=== PATIENT | male | born 1980 | race Caucasian/White ===

== ENCOUNTER 2017-07-01 08:27 | Emergency (ER) | payer SELFPAY ==
[2017-07-01] MEDS ORDERED: BUTALB/ACETAMINOPHEN/CAFFEINE 1 TAB EACH PO ONE (09:12)
--- NOTE | 2017-07-01 09:13 | ER Document Report ---
ED Medical Screen (RME) - General Chief Complaint: Blood Pressure Problem Stated Complaint: BLOOD PRESSURE CONCERN Time Seen by Provider: 07/01/17 09:11 Notes: Patient presents with bilateral frontal squeezing headache. He is also tearful and says that he is concerned about his health. States he does not go to the doctor regularly. States that he is concerned about his blood pressure being elevated. Denies any knowledge of chronic medical conditions or previous surgeries. Patient denies SI/HI. TRAVEL OUTSIDE OF THE [place] IN LAST 30 DAYS: No - Related Data Allergies/Adverse Reactions: No Known Allergies Allergy (Verified 07/01/17 08:29) Past Medical History - Social History Chew tobacco use (# tins/day): No Frequency of alcohol use: Occasional Drug Abuse: None Renal/ Medical History: Denies: Hx Peritoneal Dialysis - Immunizations Hx Diphtheria, Pertussis, Tetanus Vaccination: Yes - 2013
--- NOTE | 2017-07-01 09:22 | ER Document Report ---
ED Blood Pressure Problem - General Chief Complaint: Blood Pressure Problem Stated Complaint: BLOOD PRESSURE CONCERN Time Seen by Provider: 07/01/17 09:11 Notes: The patient is a 37-year-old male, no past medical history because he has not seen a doctor since he was in high school, presents with his usual dull frontal headache that gradually started yesterday. He has had this multiple times in the past and usually said that Goodies has helped him in the past. He took Tylenol about 3 hours ago and he feels like his headache is already improving. He received 2 Fioricet in triage so that his headache has resolved. Patient also worried about his blood pressure being elevated. Denies blurry vision, nausea, vomiting, weakness, numbness, tingling, ataxia, chest pain, shortness of breath, back pain, fevers or neck stiffness. TRAVEL OUTSIDE OF THE [place] IN LAST 30 DAYS: No - Related Data Allergies/Adverse Reactions: No Known Allergies Allergy (Verified 07/01/17 08:29) Past Medical History - General Information source: Patient - Social History Smoking Status: Current Some Day Smoker Chew tobacco use (# tins/day): No Frequency of alcohol use: Occasional Drug Abuse: None Family History: Reviewed & Not Pertinent Patient has suicidal ideation: No Patient has homicidal ideation: No Renal/ Medical History: Denies: Hx Peritoneal Dialysis - Immunizations Hx Diphtheria, Pertussis, Tetanus Vaccination: Yes - 2013 Review of Systems - Review of Systems Notes: REVIEW OF SYSTEMS: CONSTITUTIONAL: -fevers, -chills EENT: -eye pain, -difficulty swallowing, -nasal congestion CARDIOVASCULAR:-chest pain, -syncope. RESPIRATORY: -cough, -SOB GASTROINTESTINAL: -abdominal pain, - nausea, -vomiting, -diarrhea GENITOURINARY: -dysuria, -hematuria MUSCULOSKELETAL: -back pain, -neck pain SKIN: -rash or skin lesions. HEMATOLOGIC: -easy bruising or bleeding. LYMPHATIC: -swollen, enlarged glands. NEUROLOGICAL: -altered mental status or loss of consciousness, +headache, - neurologic symptoms PSYCHIATRIC: -anxiety, -depression. ALL OTHER SYSTEMS REVIEWED AND NEGATIVE. Physical Exam - Notes Notes: PHYSICAL EXAMINATION: GENERAL: Well-appearing, well-nourished and in no acute distress. HEAD: Atraumatic, normocephalic. EYES: Pupils equal round and reactive to light, extraocular movements intact, sclera anicteric, conjunctiva are normal. ENT: nares patent, oropharynx clear without exudates. Moist mucous membranes. NECK: Normal range of motion, supple without lymphadenopathy LUNGS: Breath sounds clear to auscultation bilaterally and equal. No wheezes rales or rhonchi. HEART: Regular rate and rhythm without murmurs ABDOMEN: Soft, nontender, normoactive bowel sounds. No guarding, no rebound. No masses appreciated. EXTREMITIES: Normal range of motion, no pitting or edema. No cyanosis. NEUROLOGICAL: Cranial nerves grossly intact. Normal speech, normal gait. Normal sensory and motor exams. PSYCH: Normal mood, normal affect. SKIN: Warm, Dry, normal turgor, no rashes or lesions noted. Course - Re-evaluation Re-evalutation: Patient's headache is similar to prior headaches and seems benign in nature. Symptoms are not consistent with SAH, ICH or meningitis at this time. Instructed him to continue Tylenol and anti-inflammatories with large amounts of water and to stop smoking in order to help his headaches. Patient does not have a primary care physician. He has had multiple elevated blood pressure readings, so we will begin a low-dose Norvasc and instructed him to follow-up with the primary care physician for possible adjustments of his medications. He has otherwise asymptomatic hypertension and does not require blood work. Given strict return precautions and he understands. Discharge - Discharge Clinical Impression: Elevated blood pressure reading Headache Qualifiers: Headache type: unspecified Headache chronicity pattern: chronic headache Intractability: not intractable Qualified Code(s): R51 - Headache Condition: Stable Disposition: HOME, SELF-CARE Additional Instructions: HIGH BLOOD PRESSURE REQUIRING TREATMENT: Your blood pressure is high. This is called "hypertension." Today's reading was 157/114 (normal is less than 140/90). Your history and exam suggest that this is not a temporary problem. You need treatment of your blood pressure. If left untreated, high blood pressure greatly increases your risk of heart attack and stroke. Please don't ignore this problem. If you have blood pressure medicine but aren't using it regularly, start taking it again. Some simple things you can do to help are: Get some aerobic exercise for at least 20 minutes on a daily basis. (See your doctor before beginning any new exercise program.) Eat a low-fat diet. Lose excess weight. Avoid salty foods and avoid adding salt to any of the foods you eat. Avoid diet pills, decongestants, "energizing" herbs, and other medicines that elevate blood pressure. There are many different medicines that treat blood pressure. If your medication causes unpleasant side effects, call your doctor. There are others you can try. Treating hypertension is a life-long investment in your health. CALCIUM CHANNEL BLOCKERS: A medication of the calcium channel martha type has been prescribed for you. Examples of this type of medicine are Calan, Isoptin, Procardia, and Cardizem. These medicines have a variety of uses, including prevention of angina attacks, treatment of blood pressure, regulation of certain heart rhythm problems, and prevention of migraine headaches. Calcium channel blockers work by interfering with the flow of calcium in cell membranes. This results in dilation of blood vessels, and slowing of electrical conduction in the heart. A slight dizziness (due to a fall in blood pressure) may occur with the first dose, and sometimes even with later doses. This may make you prone to dizziness if you stand up suddenly. Call the doctor if lightheadedness is severe, or if you develop palpitations, shortness of breath, or any other new or alarming symptoms. FOLLOW-UP CARE: If you have been referred to a physician for follow-up care, call the physician s office for an appointment as you were instructed or within the next two days. If you experience worsening or a significant change in your symptoms, notify the physician immediately or return to the Emergency Department at any time for re-evaluation. HEADACHE: The physician does not feel that the headache you are experiencing has a serious underlying cause. Most headaches are due to emotional stress, with resultant muscle tension (tension headache). Occasionally, headaches are secondary to changes in the blood vessels of the scalp (vascular headache and migraine headache). Sometimes, a headache is the first symptom of another developing illness, such as a viral infection. You have no evidence of stroke, bleeding, meningitis, or other serious cause of your headache. The treatment of headaches varies with the severity and cause of the pain. Not all headaches need pain shots. In fact, there is evidence that using narcotics for headaches may make them worse in the long run. The physician will determine the therapy that's in your best interest. If you develop a fever, if the headache is different from any you've previously experienced, or if the headache progressively worsens, then call your physician at once or go to the emergency room. FOLLOW-UP CARE: If you have been referred to a physician for follow-up care, call the physician s office for an appointment as you were instructed or within the next two days. If you experience worsening or a significant change in your symptoms, notify the physician immediately or return to the Emergency Department at any time for re-evaluation. Prescriptions: Amlodipine Besylate [Norvasc 5 mg Tablet] 5 mg PO DAILY #30 tablet Forms: Elevated Blood Pressure Referrals: ANTHONY CALI MD [ACTIVE STAFF] - Follow up as needed
[2017-07-01] MEDS ORDERED: AMLODIPINE BESYLATE 5 MG TABLET PO ONE (09:28)
[2017-07-01 10:04] VITALS: BP 156/94
== END 2017-07-01 10:04 | disposition home or self-care (01) ==
LOC: ER 08:27
DX: R51 Headache (principal); R03.0 Elevated blood-pressure reading, without diagnosis of hypertension; F17.200 Nicotine dependence, unspecified, uncomplicated
CPT/HCPCS: 99283; J3490

== ENCOUNTER → 2018-02-10 | Outpatient (CLI) | payer OTHER ==
[2018-02-10 12:10] LABS: ALANINE AMINOTRANSFERASE 72 U/L (21-72); ALBUMIN 4.8 g/dL (3.5-5.0); ALKALINE PHOSPHATASE 66 U/L (38-126); ASPARTATE AMINO TRANSFERASE 47 U/L (17-59); BILIRUBIN,DIRECT 0.4 mg/dL (0.0-0.4); BILIRUBIN,TOTAL 0.6 mg/dL (0.2-1.3); TOTAL PROTEIN 7.9 g/dL (6.3-8.2)
[2018-02-10 12:18] LABS: ALANINE AMINOTRANSFERASE 70 U/L (21-72); ALBUMIN 4.8 g/dL (3.5-5.0); ALKALINE PHOSPHATASE 61 U/L (38-126); ANION GAP 14 (5-19); ASPARTATE AMINO TRANSFERASE 51 U/L (17-59); BILIRUBIN,DIRECT 0.5 mg/dL (0.0-0.4); BILIRUBIN,TOTAL 0.7 mg/dL (0.2-1.3); BLOOD UREA NITROGEN 12 mg/dL (7-20); CALCIUM 9.8 mg/dL (8.4-10.2); CARBON DIOXIDE 24 mmol/L (22-30); CHLORIDE 103 mmol/L (98-107); CHOLESTEROL 243.63 mg/dL (0-200); GLUCOSE 83 mg/dL (75-110); POTASSIUM 5.2 mmol/L (3.6-5.0); SODIUM 140.7 mmol/L (137-145); TOTAL PROTEIN 8.2 g/dL (6.3-8.2); TRIGLYCERIDES 167 mg/dL (<150)
[2018-02-10 12:33] LABS: DIRECT LDL 173 mg/dL (<100)
[2018-02-10 12:34] LABS: VLDL CHOLESTEROL 33.4 mg/dL (10-31)
== END ==
LOC: CCC 10:42
DX: I10 Essential (primary) hypertension (principal); K21.9 Gastro-esophageal reflux disease without esophagitis
CPT/HCPCS: 36415; 80053; 80061; 80076; 83036; 84443

== ENCOUNTER → 2018-03-05 | Outpatient (CLI) | payer OTHER ==
--- NOTE | 2018-03-06 08:55 | RADIOLOGY REPORT (SQ) ---
EXAM DESCRIPTION: U/S NON-OB PELVIS LTD W/O DOP COMPLETED DATE/TIME: 03/05/2018 6:23 pm REASON FOR STUDY: R10.30 LOWER ABDOMINAL PAIN, UNSPECIFIED R10.30 LOWER ABDOMINAL PAIN, UNSPECIFIED COMPARISON: None. TECHNIQUE: Dynamic and static grayscale images acquired of the localized site of clinical concern an d recorded on PACS. Additional selected color Doppler and spectral images recorded. SITE OF CONCERN: Left inguinal region. LIMITATIONS: None. FINDINGS: No soft tissue abnormality. No solid or cystic mass. No sonographic evidence of inguinal hernia. IMPRESSION: NO SONOGRAPHIC ABNORMALITY IN THE LEFT INGUINAL REGION. TECHNICAL DOCUMENTATION: JOB ID: [id number] [employer]- All Rights Reserved Reading location - IP/workstation name: [facility]PL[facility] BY [email or web address]
== END ==
LOC: RAD 18:08
DX: R10.30 Lower abdominal pain, unspecified (principal)
CPT/HCPCS: 76857

== ENCOUNTER 2018-06-17 11:42 | Emergency (ER) | payer OTHER ==
[2018-06-17] MEDS ORDERED: ASPIRIN 81 MG TABLET, CHEWABLE PO ONE (12:48)
[2018-06-17] MEDS ORDERED: CLONIDINE HCL 0.1 MG TABLET PO ONE (12:49)
[2018-06-17] MEDS ORDERED: FAMOTIDINE INJ/PF 20 MG/2 ML SDV IV ONE (12:50)
[2018-06-17] MEDS ORDERED: METOCLOPRAMIDE HCL ORAL SOLN 10 MG/10 ML UDCUP PO ONE (12:50)
[2018-06-17] MEDS ORDERED: MAG HYDROX/AL HYDROX/SIMETH SUSP 30 ML UDCUP PO ONE (12:50)
[2018-06-17] MEDS ORDERED: LIDOCAINE 2% VISCOUS SOLN 20 ML UDCUP PO ONE (12:50)
--- NOTE | 2018-06-17 12:52 | ER Document Report ---
ED Medical Screen (RME) - General Chief Complaint: High Blood Pressure Stated Complaint: BLOOD PRESSURE ISSUES, ANXIETY Time Seen by Provider: 06/17/18 12:48 Mode of Arrival: Ambulatory Information source: Patient Notes: 38-year-old male presents emergency department for anxiety, hypertension, chest pain. Patient states that he was at work when he began having L arm pain and chest pressure. He became very anxious. Was worried he was having an anxiety attack. Now having a gas/indigestion sensation in the epigastric area. No radiation of the pain. No alleviating or exacerbating factors. Patient has a history of hypertension, hyperlipidemia, family history of coronary artery disease. Patient states that his dad had an OH at age 40. Patient denies any cocaine, marijuana, heroin, drug abuse. I have greeted and performed a rapid initial assessment of this patient. A comprehensive ED assessment and evaluation of the patient, analysis of test results and completion of the medical decision making process will be conducted by additional ED providers. PHYSICAL EXAMINATION: GENERAL: Well-appearing, well-nourished and in no acute distress. HEAD: Atraumatic, normocephalic. EYES: Pupils equal round extraocular movements intact, conjunctiva are normal. ENT: Nares patent NECK: Normal range of motion LUNGS: No respiratory distress Musculoskeletal: Normal range of motion SKIN: Warm, Dry, normal turgor, no rashes or lesions noted. TRAVEL OUTSIDE OF THE [place] IN LAST 30 DAYS: No - Related Data Allergies/Adverse Reactions: No Known Allergies Allergy (Verified 06/17/18 11:45) Past Medical History - Social History Chew tobacco use (# tins/day): No Frequency of alcohol use: Occasional Drug Abuse: None - Past Medical History Cardiac Medical History: Reports: Hx Hypercholesterolemia, Hx Hypertension Renal/ Medical History: Denies: Hx Peritoneal Dialysis - Immunizations Hx Diphtheria, Pertussis, Tetanus Vaccination: Yes - 2013 Physical Exam - Vital signs Vitals: Temp Pulse Resp BP Pulse Ox 98.5 F 80 18 151/93 H 97 06/17/18 11:59 06/17/18 11:59 06/17/18 11:59 06/17/18 11:59 06/17/18 11:59 Course - Vital Signs Vital signs: Temp Pulse Resp BP Pulse Ox 98.5 F 80 18 151/93 H 97 06/17/18 11:59 06/17/18 11:59 06/17/18 11:59 06/17/18 11:59 06/17/18 11:59 Doctor's Discharge - Discharge Referrals: [facility] [Primary Care Provider] - Follow up as needed
--- NOTE | 2018-06-17 13:10 | EKG REPORT ---
SEVERITY:- NORMAL ECG - SINUS RHYTHM : Confirmed by: Cyril Childs MD 17-Jun-2018 13:09:35
[2018-06-17 14:01] LABS: ABSOLUTE BASOPHILS # (AUTO) 0.1 10^3/uL (0.0-0.2); ABSOLUTE EOSINOPHILS # (AUTO) 0.3 10^3/uL (0.0-0.6); ABSOLUTE LYMPHOCYTES (AUTO) 2.5 10^3/uL (0.5-4.7); ABSOLUTE MONOCYTES (AUTO) 0.5 10^3/uL (0.1-1.4); ABSOLUTE NEUT (AUTO) 4.7 10^3/uL (1.7-8.2); BASOPHILS % (AUTO) 0.8 % (0-2); EOSINOPHILS % (AUTO) 3.4 % (0-6); HEMOGLOBIN 16.4 g/dL (13.5-17.0); MEAN CORPUSCULAR HEMOGLOBIN 31.3 pg (27.0-33.4); MEAN CORPUSCULAR HGB CONC 35.6 g/dL (32.0-36.0); MEAN CORPUSCULAR VOLUME 88 fl (80-97); MONOCYTES % (AUTO) 5.7 % (3-13); PLATELET COUNT 298 10^3/uL (150-450); RED BLOOD COUNT 5.24 10^6/uL (4.35-5.55); RED CELL DISTRIBUTION WIDTH 12.8 % (11.5-14.0); SEGMENTED NEUTROPHILS % (AUTO) 59.1 % (42-78); TOTAL CELLS COUNTED % (AUTO) 100 %
[2018-06-17 14:14] LABS: URINE AMPHETAMINES SCREEN NEGATIVE; URINE BARBITURATES SCREEN NEGATIVE; URINE BENZODIAZEPINES SCREEN NEGATIVE; URINE COCAINE SCREEN NEGATIVE; URINE MARIJUANA (THC) SCREEN UNCONFIRMED POSITIVE; URINE METHADONE SCREEN NEGATIVE; URINE PHENCYCLIDINE SCREEN NEGATIVE
[2018-06-17 14:18] LABS: ALANINE AMINOTRANSFERASE 50 U/L (21-72); ALBUMIN 4.7 g/dL (3.5-5.0); ALKALINE PHOSPHATASE 68 U/L (38-126); ANION GAP 14 (5-19); ASPARTATE AMINO TRANSFERASE 35 U/L (17-59); BILIRUBIN,DIRECT 0.2 mg/dL (0.0-0.4); BILIRUBIN,TOTAL 0.6 mg/dL (0.2-1.3); BLOOD UREA NITROGEN 10 mg/dL (7-20); CALCIUM 9.9 mg/dL (8.4-10.2); CARBON DIOXIDE 27 mmol/L (22-30); CHLORIDE 102 mmol/L (98-107); CREATINE KINASE 144 U/L (55-170); GLUCOSE 119 mg/dL (75-110); POTASSIUM 4.2 mmol/L (3.6-5.0); SODIUM 142.6 mmol/L (137-145); TOTAL PROTEIN 7.7 g/dL (6.3-8.2)
[2018-06-17 14:28] LABS: CREATINE KINASE MB 1.06 ng/mL (<4.55)
[2018-06-17 14:29] LABS: TROPONIN I < 0.012 ng/mL
[2018-06-17 14:34] LABS: FREE T4 (FREE THYROXINE) 1.07 ng/dL (0.78-2.19)
[2018-06-17 14:48] LABS: THYROID STIMULATING HORMONE 0.91 uIU/mL (0.47-4.68)
--- NOTE | 2018-06-17 15:11 | RADIOLOGY REPORT (SQ) ---
EXAM DESCRIPTION: CHEST SINGLE VIEW COMPLETED DATE/TIME: 06/17/2018 2:48 pm REASON FOR STUDY: chest pain COMPARISON: None. EXAM PARAMETERS: NUMBER OF VIEWS: One view. TECHNIQUE: Single frontal radiographic view of the chest acquired. RADIATION DOSE: NA LIMITATIONS: None. FINDINGS: LUNGS AND PLEURA: No opacities, masses or pneumothorax. No pleural effusion. MEDIASTINUM AND HILAR STRUCTURES: No masses. Contour normal. HEART AND VASCULAR STRUCTURES: Heart normal in size. Normal vasculature. BONES: No acute findings. HARDWARE: None in the chest. OTHER: No other significant finding. IMPRESSION: NO ACUTE RADIOGRAPHIC FINDING IN THE CHEST. TECHNICAL DOCUMENTATION: JOB ID: [id number] [employer]- All Rights Reserved Reading location - IP/workstation name: [email or web address]
[2018-06-17] MEDS ORDERED: HYDROXYZINE PAMOATE 25 MG CAPSULE PO ONE (15:27)
[2018-06-17] MEDS ORDERED: NORMAL SALINE 1000 ML 1,000 ML IV ONE (15:37)
--- NOTE | 2018-06-17 15:38 | ER Document Report ---
ED General - General Chief Complaint: High Blood Pressure Stated Complaint: BLOOD PRESSURE ISSUES, ANXIETY Time Seen by Provider: 06/17/18 12:48 Mode of Arrival: Ambulatory TRAVEL OUTSIDE OF THE [place] IN LAST 30 DAYS: No - HPI Patient complains to provider of: Chest pain anxiety elevated blood pressure Notes: Patient coming in for the above-stated issues. Patient was evaluated in the triage area notes provided to look below 38-year-old male presents emergency department for anxiety, hypertension, chest pain. Patient states that he was at work when he began having L arm pain and chest pressure. He became very anxious. Was worried he was having an anxiety attack. Now having a gas/indigestion sensation in the epigastric area. No radiation of the pain. No alleviating or exacerbating factors. Patient has a history of hypertension, hyperlipidemia, family history of coronary artery disease. Patient states that his dad had an MN at age 40. Patient denies any cocaine, marijuana, heroin, drug abuse. Patient agrees with above statements. Patient states that he does believe most of his symptoms are coming from anxiety attacks. Patient states he does have a appointment to follow-up with local psychiatric provider patient states he is on blood pressure medication amlodipine 5 mg and has been compliant with his medication. Patient denies any fever chills nausea vomiting diarrhea denies any recent travel denies any trauma. - Related Data Allergies/Adverse Reactions: No Known Allergies Allergy (Verified 06/17/18 11:45) Past Medical History - General Information source: Patient - Social History Smoking Status: Current Every Day Smoker Chew tobacco use (# tins/day): No Frequency of alcohol use: Occasional Drug Abuse: None Family History: Reviewed & Not Pertinent Patient has suicidal ideation: No Patient has homicidal ideation: No - Past Medical History Cardiac Medical History: Reports: Hx Hypercholesterolemia, Hx Hypertension Renal/ Medical History: Denies: Hx Peritoneal Dialysis - Immunizations Hx Diphtheria, Pertussis, Tetanus Vaccination: Yes - 2013 Review of Systems - Review of Systems Constitutional: No symptoms reported EENT: No symptoms reported Cardiovascular: Chest pain Respiratory: No symptoms reported Gastrointestinal: No symptoms reported Genitourinary: No symptoms reported Male Genitourinary: No symptoms reported Musculoskeletal: No symptoms reported Skin: No symptoms reported Hematologic/Lymphatic: No symptoms reported Neurological/Psychological: Anxiety -: Yes All other systems reviewed and negative Physical Exam - Vital signs Vitals: Temp Pulse Resp BP Pulse Ox 98.5 F 80 18 151/93 H 97 06/17/18 11:59 06/17/18 11:59 06/17/18 11:59 06/17/18 11:59 06/17/18 11:59 Interpretation: Hypertensive - General General appearance: Appears well, Alert - HEENT Head: Normocephalic, Atraumatic Eyes: Normal Pupils: PERRL - Respiratory Respiratory status: No respiratory distress Chest status: Nontender Breath sounds: Normal Chest palpation: Normal - Cardiovascular Rhythm: Regular Heart sounds: Normal auscultation Murmur: No - Abdominal Inspection: Normal Distension: No distension Bowel sounds: Normal Tenderness: Nontender Organomegaly: No organomegaly - Back Back: Normal, Nontender - Extremities General upper extremity: Normal inspection, Nontender, Normal color, Normal ROM , Normal temperature General lower extremity: Normal inspection, Nontender, Normal color, Normal ROM , Normal temperature, Normal weight bearing. No: Josiah's sign - Neurological Neuro grossly intact: Yes Cognition: Normal Orientation: AAOx4 Langford Coma Scale Eye Opening: Spontaneous Langford Coma Scale Verbal: Oriented Langford Coma Scale Motor: Obeys Commands Carol Coma Scale Total: 15 Speech: Normal Motor strength normal: LUE, RUE, LLE, RLE Sensory: Normal - Psychological Associated symptoms: Normal affect, Normal mood - Skin Skin Temperature: Warm Skin Moisture: Dry Skin Color: Normal Course - Re-evaluation Re-evalutation: 06/17/18 22:43 The patient has atypical chest pain as the patient's chest pain is not suggestive of pulmonary embolus, cardiac ischemia, aortic dissection, or other serious etiology. Given the extremely low risk of these diagnoses further testing and evaluation for these possibilities does not appear to be indicated at this time. The patient has been instructed to return if the symptoms worsen or change in any way. Patient was given medication to help out with his possible underlying anxiety. Laboratory studies not show any critical pathology discharged home. - Vital Signs Vital signs: Temp Pulse Resp BP Pulse Ox 98.4 F 77 19 147/89 H 98 06/17/18 16:35 06/17/18 16:35 06/17/18 16:35 06/17/18 16:35 06/17/18 16:35 - Laboratory Result Diagrams: 06/17/18 13:45 06/17/18 13:45 Laboratory results interpreted by me: 06/17/18 13:45 Glucose 119 H Discharge - Discharge Clinical Impression: Anxiety Hypertension Qualifiers: Hypertension type: essential hypertension Qualified Code(s): I10 - Essential ( primary) hypertension Chest pain Qualifiers: Chest pain type: unspecified Qualified Code(s): R07.9 - Chest pain, unspecified Condition: Good Disposition: HOME, SELF-CARE Instructions: Anxiety ([facility]), Chest Wall Pain ([facility]), Chest Pain of Unclear Cause ([facility]), High Blood Pressure, Requiring Treatment ([facility]) Additional Instructions: Your laboratory studies today did not show any critical pathology. No signs of heart ischemia heart attack no signs of infection. Some your symptoms may be due to underlying anxiety also may be due to the elevated blood pressure. Her blood pressure here although slightly elevated and is otherwise normal. We can adjust her blood pressure medication today increasing her amlodipine to 10 mg. I will provide your prescription for this. Also give you a medication called Vistaril to help out with any anxiety that you are having. I highly recommend she follow-up with her primary care physician for further evaluation. Return to the ER for any other concerns. Please make sure drinking plenty of fluids stay well-hydrated. Prescriptions: Ibuprofen [Motrin 600 mg Tablet] 600 mg PO Q8HP PRN #21 tablet PRN Reason: Amlodipine Besylate 10 mg PO DAILY #30 tab Hydroxyzine Pamoate [Vistaril 25 mg Capsule] 25 mg PO DAILY #30 capsule Forms: Return to Work Referrals: [facility] [Primary Care Provider] - Follow up as needed
[2018-06-17 16:38] VITALS: BP 147/89
== END 2018-06-17 16:35 | disposition home or self-care (01) ==
LOC: ER 11:42
DX: E78.00 Pure hypercholesterolemia, unspecified (principal); R07.9 Chest pain, unspecified; F41.9 Anxiety disorder, unspecified; F17.200 Nicotine dependence, unspecified, uncomplicated; R40.2412 Glasgow coma scale score 13-15, at arrival to emergency department
CPT/HCPCS: 93005; 99284; 96374; 36415; 84439; 82553; 82550; 84443; 85025; 80053; 84484; 80307; 71045; 93010; J3490; S0028

== ENCOUNTER 2019-01-09 23:34 | Emergency (ER) | payer BC, OTHER ==
[2019-01-10] MEDS ORDERED: NORMAL SALINE 1000 ML 1,000 ML IV ONE (00:38)
[2019-01-10] MEDS ORDERED: MAG HYDROX/AL HYDROX/SIMETH SUSP 30 ML UDCUP PO ONE (00:38)
[2019-01-10] MEDS ORDERED: METOCLOPRAMIDE HCL ORAL SOLN 10 MG/10 ML UDCUP PO ONE (00:38)
[2019-01-10] MEDS ORDERED: LIDOCAINE 2% VISCOUS SOLN 20 ML UDCUP PO ONE (00:38)
--- NOTE | 2019-01-10 00:41 | ER Document Report ---
ED Medical Screen (RME) - General Chief Complaint: Chest Pain Stated Complaint: CHEST PAIN Time Seen by Provider: 01/10/19 00:38 Primary Care Provider: HERBER ALEXANDRE [Primary Care Provider] - Follow up as needed Notes: Patient is a 38-year-old male history of hypertension on Norvasc presents to the emergency department for generalized chest pressure. Patient states since Saturday he has had multiple episodes of vomiting and diarrhea. He is denying any fevers. States this afternoon he felt a heaviness in the center of his chest. Patient states he thinks is associated with him trying to eat pizza and the potential choking episode but he is unsure. He is unsure exactly when the chest pressure started. States he does have a history of indigestion and does take Nexium. States is been missing multiple Nexium doses recently. GENERAL: Alert, interacts well. No acute distress. LUNGS: Clear to auscultation bilaterally, no wheezes, rales, or rhonchi. No respiratory distress. ABDOMEN: Soft, non-tender. Non-distended. Bowel sounds present in all 4 quadrants. I have greeted and performed a rapid initial assessment of this patient. A comprehensive ED assessment and evaluation of the patient, analysis of test results and completion of the medical decision making process will be conducted by additional ED providers. TRAVEL OUTSIDE OF THE [place] IN LAST 30 DAYS: No - Related Data Allergies/Adverse Reactions: No Known Allergies Allergy (Verified 06/17/18 11:45) Past Medical History - Past Medical History Cardiac Medical History: Reports: Hx Hypercholesterolemia, Hx Hypertension Renal/ Medical History: Denies: Hx Peritoneal Dialysis - Immunizations Hx Diphtheria, Pertussis, Tetanus Vaccination: Yes - 2013 Physical Exam - Vital signs Vitals: Temp Pulse Resp BP Pulse Ox 98.7 F 95 14 158/95 H 96 01/10/19 00:02 01/10/19 00:02 01/10/19 00:02 01/10/19 00:02 01/10/19 00:02 Course - Vital Signs Vital signs: Temp Pulse Resp BP Pulse Ox 98.7 F 95 14 158/95 H 96 01/10/19 00:02 01/10/19 00:02 01/10/19 00:02 01/10/19 00:02 01/10/19 00:02 Doctor's Discharge - Discharge Referrals: [facility] [Primary Care Provider] - Follow up as needed
[2019-01-10 01:42] LABS: ABSOLUTE EOSINOPHILS # (AUTO) 0.2 10^3/uL (0.0-0.6); ABSOLUTE LYMPHOCYTES (AUTO) 1.4 10^3/uL (0.5-4.7); ABSOLUTE MONOCYTES (AUTO) 0.8 10^3/uL (0.1-1.4); ABSOLUTE NEUT (AUTO) 5.6 10^3/uL (1.7-8.2); BASOPHILS % (AUTO) 0.6 % (0-2); EOSINOPHILS % (AUTO) 1.9 % (0-6); HEMATOCRIT 44.2 % (37.9-51.0); HEMOGLOBIN 15.4 g/dL (13.5-17.0); LYMPHOCYTES % (AUTO) 17.2 % (13-45); MEAN CORPUSCULAR HEMOGLOBIN 30.3 pg (27.0-33.4); MEAN CORPUSCULAR HGB CONC 34.7 g/dL (32.0-36.0); MEAN CORPUSCULAR VOLUME 87 fl (80-97); MONOCYTES % (AUTO) 10.6 % (3-13); PLATELET COUNT 264 10^3/uL (150-450); RED BLOOD COUNT 5.07 10^6/uL (4.35-5.55); SEGMENTED NEUTROPHILS % (AUTO) 69.7 % (42-78); TOTAL CELLS COUNTED % (AUTO) 100 %
[2019-01-10 02:00] LABS: ALANINE AMINOTRANSFERASE 77 U/L (21-72); ALBUMIN 4.7 g/dL (3.5-5.0); ALKALINE PHOSPHATASE 59 U/L (38-126); ANION GAP 15 (5-19); ASPARTATE AMINO TRANSFERASE 53 U/L (17-59); BILIRUBIN,DIRECT 0.3 mg/dL (0.0-0.4); BILIRUBIN,TOTAL 0.5 mg/dL (0.2-1.3); BLOOD UREA NITROGEN 13 mg/dL (7-20); CALCIUM 9.6 mg/dL (8.4-10.2); CARBON DIOXIDE 27 mmol/L (22-30); CHLORIDE 100 mmol/L (98-107); GLUCOSE 97 mg/dL (75-110); POTASSIUM 3.6 mmol/L (3.6-5.0); SODIUM 142.2 mmol/L (137-145); TOTAL PROTEIN 7.3 g/dL (6.3-8.2)
--- NOTE | 2019-01-10 02:16 | RADIOLOGY REPORT (SQ) ---
EXAM DESCRIPTION: XR CHEST 1 VIEW COMPLETED DATE/TME: 01/10/2019 00:39 CLINICAL HISTORY: 38 years, Male, CP COMPARISON: None. NUMBER OF VIEWS: 1 TECHNIQUE: Portable chest LIMITATIONS: None. FINDINGS: Heart size is normal. Mild elevation of the right hemidiaphragm. Lungs are clear. No pneumothorax IMPRESSION: No acute cardiopulmonary process copyright 2010 [employer]- All Rights Reserved
[2019-01-10] MEDS ORDERED: SUCRALFATE 1 GM TABLET PO ONE (02:51)
[2019-01-10] MEDS ORDERED: FAMOTIDINE INJ/PF 20 MG/2 ML SDV IV ONE (02:51)
[2019-01-10 03:18] VITALS: BP 147/91
--- NOTE | 2019-01-10 03:42 | ER Document Report ---
ED General - General Chief Complaint: Chest Pain Stated Complaint: CHEST PAIN Time Seen by Provider: 01/10/19 00:38 Primary Care Provider: [facility] HERBER MCCORD [NO LOCAL MD] - Follow up as needed Notes: Patient is a 38-year-old male history of hypertension on Norvasc presents to the emergency department for generalized chest pressure. Patient states since Saturday he has had multiple episodes of vomiting and diarrhea. Denies blood in his emesis or diarrhea. He is denying any fevers. States this afternoon he felt a heaviness in the center of his chest. Patient states he thinks is associated with him trying to eat pizza and the potential choking episode but he is unsure. States he does have a history of indigestion and does take Nexium. States he has been missing multiple Nexium doses recently. Patient is currently denying any chest pain or pressure. States he just feels very nauseated and has a "indigestion type feeling." TRAVEL OUTSIDE OF THE [place] IN LAST 30 DAYS: No - Related Data Allergies/Adverse Reactions: No Known Allergies Allergy (Verified 06/17/18 11:45) Past Medical History - General Information source: Patient - Social History Smoking Status: Current Every Day Smoker Chew tobacco use (# tins/day): No Frequency of alcohol use: None Drug Abuse: None Family History: Reviewed & Not Pertinent Patient has suicidal ideation: No Patient has homicidal ideation: No - Past Medical History Cardiac Medical History: Reports: Hx Hypercholesterolemia, Hx Hypertension Renal/ Medical History: Denies: Hx Peritoneal Dialysis - Immunizations Hx Diphtheria, Pertussis, Tetanus Vaccination: Yes - 2013 Review of Systems - Review of Systems Constitutional: denies: Fever EENT: No symptoms reported Cardiovascular: See HPI Respiratory: No symptoms reported Gastrointestinal: See HPI Genitourinary: No symptoms reported Male Genitourinary: No symptoms reported Musculoskeletal: No symptoms reported Skin: No symptoms reported Hematologic/Lymphatic: No symptoms reported Neurological/Psychological: No symptoms reported Physical Exam - Vital signs Vitals: Temp Pulse Resp BP Pulse Ox 98.7 F 95 14 158/95 H 96 01/10/19 00:02 01/10/19 00:02 01/10/19 00:02 01/10/19 00:02 01/10/19 00:02 - Notes Notes: GENERAL: Alert, interacts well. No acute distress. HEAD: Normocephalic, atraumatic. EYES: Pupils equal, round, and reactive to light. Extraocular movements intact. ENT: Oral mucosa moist, tongue midline. NECK: Full range of motion. Supple. Trachea midline. LUNGS: Clear to auscultation bilaterally, no wheezes, rales, or rhonchi. No respiratory distress. HEART: Regular rate and rhythm. No murmur Chest: No crepitus felt, no erythema ecchymosis anterior posterior chest wall. ABDOMEN: Soft, non-tender. Non-distended. Bowel sounds present in all 4 quadrants. No McBurney's point tenderness, no Casarez sign noted. EXTREMITIES: Moves all 4 extremities spontaneously. No edema, normal radial and dorsalis pedis pulses bilaterally. No cyanosis. BACK: no cervical, thoracic, lumbar midline tenderness. No saddle anesthesia, normal distal neurovascular exam. NEUROLOGICAL: Alert and oriented x3. Normal speech. cranial nerves II through XII grossly intact PSYCH: Normal affect, normal mood. SKIN: Warm, dry, normal turgor. No rashes or lesions noted. Course - Re-evaluation Re-evalutation: 01/10/19 03:42 Laboratory 01/10/19 01/10/19 01/10/19 01:27 01:27 01:27 WBC 8.0 RBC 5.07 Hgb 15.4 Hct 44.2 MCV 87 MCH 30.3 MCHC 34.7 RDW 13.0 Plt Count 264 Seg Neutrophils % 69.7 Lymphocytes % 17.2 Monocytes % 10.6 Eosinophils % 1.9 Basophils % 0.6 Absolute Neutrophils 5.6 Absolute Lymphocytes 1.4 Absolute Monocytes 0.8 Absolute Eosinophils 0.2 Absolute Basophils 0.0 Sodium 142.2 Potassium 3.6 Chloride 100 Carbon Dioxide 27 Anion Gap 15 BUN 13 Creatinine 0.84 Est GFR ( Amer) > 60 Est GFR (Non-Af Amer) > 60 Glucose 97 Calcium 9.6 Total Bilirubin 0.5 Direct Bilirubin 0.3 Neonat Total Bilirubin Not Reportable Neonat Direct Bilirubin Not Reportable Neonat Indirect Bili Not Reportable AST 53 ALT 77 H Alkaline Phosphatase 59 Troponin I < 0.012 Total Protein 7.3 Albumin 4.7 01/10/19 03:43 Patient's labs show no signs of leukocytosis, no signs of anemia, no signs of electrolyte abnormalities. Patient's chest x-ray shows no signs of pneumonia, pneumothorax. Patient's initial troponin is negative. Patient's EKG shows a sinus rhythm 97, QTC 497, no ST segment elevations or depressions noted. Patient states the GI cocktail initially helped his generalized pain. He has been able to p.o. fluids without vomiting. States he no longer feels nauseated. States after drinking fluids post GI cocktail the "burning sensation" now in his throat has returned. Pepcid and Carafate ordered and administered by nursing staff. Patient now states he is completely pain-free. I have discussed with patient likely diagnosis of gastritis from vomiting episodes. Discussed close follow-up with primary care provider and return precautions. Patient voices understanding, stable for discharge. I do not feel that patient's presentation at today's visit is cardiac related. He is a one on the heart score due to history of hypertension and smoking. After discussing patient's pain in depth he states it is more of a burning sensation, states it was more so after he tried the pizza after multiple episodes of vomiting and diarrhea over the last couple of days. Patient states he just has a generalized nausea feeling. Patient also voices that he feels overall a lot better after treatments in the emergency department. Patient stable for discharge - Vital Signs Vital signs: Temp Pulse Resp BP Pulse Ox 98.7 F 95 20 147/91 H 98 01/10/19 00:02 01/10/19 00:02 01/10/19 03:18 01/10/19 03:01 01/10/19 03:18 - Laboratory Result Diagrams: 01/10/19 01:27 01/10/19 01:27 Laboratory results interpreted by me: 01/10/19 01:27 ALT 77 H Discharge - Discharge Clinical Impression: Nausea vomiting and diarrhea, Reflux gastritis Condition: Stable Disposition: HOME, SELF-CARE Instructions: Antinausea Medication ([facility]), Diarrhea, Nonspecific ([facility]), Intravenous (IV) Fluids ([facility]), Reflux Disease (GERD) ([facility]), Vomiting ([facility]) Additional Instructions: As we discussed you have been seen and treated in the emergency department for your nausea, vomiting, diarrhea, generalized reflux. Please make sure you take medications as prescribed and follow-up with your primary care provider in the next 24 to 48 hours. Please also return to the emergency room for any other concerns. Prescriptions: Famotidine [Pepcid 40 mg Tablet] 40 mg PO BID #60 tablet Ondansetron HCl [Zofran 8 mg Tablet] 8 mg PO Q6 PRN #10 tablet PRN Reason: Sucralfate [Carafate 1 gm Tablet] 1 gm PO QID #20 tablet Forms: Return to Work Referrals: [facility] [NO LOCAL MD] - Follow up as needed
--- NOTE | 2019-01-10 23:42 | EKG REPORT ---
SEVERITY:- NORMAL ECG - SINUS RHYTHM : Confirmed by: Dixie Guzmán MD 10-Jan-2019 23:41:27
== END 2019-01-10 04:04 | disposition home or self-care (01) ==
LOC: ER 23:34
DX: K21.9 Gastro-esophageal reflux disease without esophagitis (principal); K29.60 Other gastritis without bleeding; K30 Functional dyspepsia; T47.1X6A Underdosing of other antacids and anti-gastric-secretion drugs, initial encounter; Z91.14 Patient's other noncompliance with medication regimen; Z79.899 Other long term (current) drug therapy; R07.89 Other chest pain; R11.2 Nausea with vomiting, unspecified; R19.7 Diarrhea, unspecified; F17.200 Nicotine dependence, unspecified, uncomplicated; I10 Essential (primary) hypertension
CPT/HCPCS: 93005; 99284; 96361; 96374; 36415; 85025; 80053; 84484; 71045; 93010; J3490; J7030; S0028

== ENCOUNTER 2020-04-05 17:11 | Emergency (ER) | payer BC ==
[2020-04-05 18:18] VITALS: BP 146/82
--- NOTE | 2020-04-05 18:27 | ER Document Report ---
ED Blood Pressure Problem - General Chief Complaint: Blood Pressure Problem Stated Complaint: BLOOD PRESSURE ISSUE Time Seen by Provider: 04/05/20 18:12 Mode of Arrival: Ambulatory Information source: Patient Notes: 39-year-old male presented to ED for elevated blood pressure. He states his blood pressure was 193/100 at home. He states he had taken Sudafed for his cold and then thinks he took a second 1. I told him he was not supposed to take the first 1 must last the second 1 with elevated blood pressure and this could be why his blood pressure was so high. I did recheck the blood pressure was 146/82. He denies any headache or any other symptoms at this time. I have listened to his heart lungs and they do sound normal so I will be discharging the patient home. I have given strict instructions about use of Sudafed and antihistamines. Patient has verbalized understanding of these instructions with his high blood pressure. He states that the blood pressure did scare him and that is why came to the emergency room. TRAVEL OUTSIDE OF THE [place] IN LAST 30 DAYS: No - HPI Patient complains to provider of: High blood pressure Onset: This afternoon Onset/Duration: Intermittent Quality of pain: No pain Severity: None Pain Level: Denies Problem is: Chronic problem Pt currently taking medication for problem: Yes Associated symptoms: None Similar symptoms previously: Yes Recently seen / treated by doctor: No - Related Data Allergies/Adverse Reactions: No Known Allergies Allergy (Verified 04/05/20 18:12) Home Medications: amolidipine Past Medical History - General Information source: Patient - Social History Smoking Status: Current Every Day Smoker Cigarette use (# per day): Yes - 2 cigarettes a day Chew tobacco use (# tins/day): No Smoking Education Provided: No Frequency of alcohol use: Social Drug Abuse: None Lives with: Family Family History: Reviewed & Not Pertinent Patient has suicidal ideation: No Patient has homicidal ideation: No - Past Medical History Cardiac Medical History: Reports: Hx Hypercholesterolemia, Hx Hypertension Pulmonary Medical History: Reports: None EENT Medical History: Reports: None Neurological Medical History: Reports: None Endocrine Medical History: Reports: None Renal/ Medical History: Reports: None Malignancy Medical History: Reports None GI Medical History: Reports: None Musculoskeletal Medical History: Reports None Skin Medical History: Reports None Psychiatric Medical History: Reports: None Traumatic Medical History: Reports: None Infectious Medical History: Reports: None Surgical Hx: Negative Past Surgical History: Reports: None - Immunizations Hx Diphtheria, Pertussis, Tetanus Vaccination: Yes - 2013 Review of Systems - Review of Systems Constitutional: No symptoms reported EENT: No symptoms reported Cardiovascular: Other - Elevated blood pressure Respiratory: No symptoms reported Gastrointestinal: No symptoms reported Genitourinary: No symptoms reported Male Genitourinary: No symptoms reported Musculoskeletal: No symptoms reported Skin: No symptoms reported Hematologic/Lymphatic: No symptoms reported Neurological/Psychological: No symptoms reported -: Yes All other systems reviewed and negative Physical Exam - Vital signs Vitals: Temp Pulse Resp BP Pulse Ox 98.1 F 108 H 20 175/100 H 94 04/05/20 17:15 04/05/20 17:15 04/05/20 17:15 04/05/20 17:15 04/05/20 17:15 Interpretation: Normal, Hypertensive - 146/82 on the right arm manual blood pressure cuff - General General appearance: Appears well, Alert - HEENT Head: Normocephalic, Atraumatic Eyes: Normal Pupils: PERRL - Respiratory Respiratory status: No respiratory distress Chest status: Nontender Breath sounds: Normal Chest palpation: Normal - Cardiovascular Rhythm: Regular Heart sounds: Normal auscultation Murmur: No - Abdominal Inspection: Normal Distension: No distension Bowel sounds: Normal Tenderness: Nontender Organomegaly: No organomegaly - Back Back: Normal, Nontender - Extremities General upper extremity: Normal inspection, Nontender, Normal color, Normal ROM, Normal temperature General lower extremity: Normal inspection, Nontender, Normal color, Normal ROM, Normal temperature, Normal weight bearing. No: Josiah's sign - Neurological Neuro grossly intact: Yes Cognition: Normal Orientation: AAOx4 Carol Coma Scale Eye Opening: Spontaneous Carol Coma Scale Verbal: Oriented [place] Coma Scale Motor: Obeys Commands [place] Coma Scale Total: 15 Speech: Normal Motor strength normal: LUE, RUE, LLE, RLE Sensory: Normal - Psychological Associated symptoms: Normal affect, Normal mood - Skin Skin Temperature: Warm Skin Moisture: Dry Skin Color: Normal Course - Vital Signs Vital signs: Temp Pulse Resp BP Pulse Ox 98.1 F 108 H 20 146/82 H 94 04/05/20 18:12 04/05/20 17:15 04/05/20 17:15 04/05/20 18:17 04/05/20 17:15 Discharge - Discharge Clinical Impression: Hypertension Qualifiers: Hypertension type: unspecified Qualified Code(s): I10 - Essential (primary) hypertension Condition: Stable Disposition: HOME, SELF-CARE Additional Instructions: High Blood Pressure When your blood pressure was taken today it was elevated. Today's reading was___146/82 . Pre-hypertension/Hypertension: The patient has been informed that they may have pre-hypertension or Hypertension based on a blood pressure reading in the emergency department. I recommend that the patient call the primary care provider listed on their discharge instructions or a physician of their choice this week to arrange follow up for further evaluation of possible pre- hypertension or Hypertension. Sometimes, stress or illness causes a temporary elevation of your blood pressure. We suggest that you get your blood pressure measured three more times during the next few days to see if this is more than a temporary abnormality. If your blood pressure is greater than 150/90 on each occasion, you must have treatment. Some simple things you can do to help are: If you have blood pressure medicine but aren't using it regularly, start taking it again. Get some aerobic exercise for at least 20 minutes on a daily basis. (See your doctor before beginning a new exercise program.) Eat a low-fat diet. Lose excess weight. Avoid salty foods and avoid adding salt to any of the foods you eat. Avoid diet pills, decongestants, "energizing" herbs, and other medicines that elevate blood pressure. If left untreated, hypertension greatly enhances your risk for developing heart disease and strokes. Please don't ignore this problem. Please take your blood pressure medicine as ordered. Please do not use any antihistamines, Sudafed, or any other medications that will elevate your blood pressure. Please restrict your caffeine use as this will also elevate your blood pressure. If you need medicine for cold symptoms use Coricidin HP or ask the pharmacist for a medication you can take when you are have high blood pressure. FOLLOW-UP CARE: If you have been referred to a physician for follow-up care, call the physicians office for an appointment as you were instructed or within the next two days. If you experience worsening or a significant change in your symptoms, notify the physician immediately or return to the Emergency Department at any time for re-evaluation. Forms: Elevated Blood Pressure, Smoking Cessation Education Referrals: [facility] [Provider Group] - Follow up as needed [facility] [Provider Group] - Follow up as needed
== END 2020-04-05 18:24 | disposition home or self-care (01) ==
LOC: ER 17:11
DX: I10 Essential (primary) hypertension (principal); J00 Acute nasopharyngitis [common cold]; F17.210 Nicotine dependence, cigarettes, uncomplicated; Z79.899 Other long term (current) drug therapy
CPT/HCPCS: 99282

== ENCOUNTER 2020-04-21 21:12 | Emergency (ER) | payer BC | END 2020-04-21 21:53 | disposition left against medical advice (07) | LOC: ER 21:12 | DX: Z53.21 Procedure and treatment not carried out due to patient leaving prior to being seen by health care provider (principal) ==

== ENCOUNTER → 2020-04-22 | Outpatient (CLI) | payer BC ==
--- NOTE | 2020-04-22 13:11 | RADIOLOGY REPORT (SQ) ---
EXAM DESCRIPTION: MRI LT UPPER JOINT WITHOUT IMAGES COMPLETED DATE/TIME: 04/22/2020 11:49 am REASON FOR STUDY: M66.829 SPONTANEOUS RUPTURE OF OTHER TENDONS, UNSPECIFIED UPPER ARM M66.829 SPONT ANEOUS RUPTURE OF OTHER TENDONS, UNSPECIFIED UP COMPARISON: None. TECHNIQUE: Left elbow images acquired and stored on PACS. Multiplanar images to include fat sensiti ve sequences as T1, fluid sensitive sequences as T2/STIR, cartilage sensitive sequences as FSPD, and gradient echo sequences. LIMITATIONS: Patient motion artifact degrades several acquisitions. FINDINGS: BONE MARROW: Focal marrow edema is seen within the trochlea with the appearance of a possi ble compaction fracture. A small focus of subcortical marrow edema is seen of the lateral epicondyle . Osseous alignment and marrow signal are otherwise normal. JOINT EFFUSION: None noted. No loose bodies. ARTICULAR SURFACES: Grossly normal on this limited exam MEDIAL COLLATERAL LIGAMENT COMPLEX: Intact without edema or tear. MEDIAL EPICONDYLE AND COMMON FLEXOR TENDON: A small amount of increased intrasubstance signal is seen proximally without focal tear. LATERAL COLLATERAL LIGAMENT: Marked signal heterogeneity is seen in the region of the lateral collate ral ligament ; no discrete intact ligament fibers are demonstrated. LATERAL EPICONDYLE AND COMMON EXTENSOR TENDON: Increased intrasubstance signal without fiber retracti on. BICEPS TENDON: Edema is seen along the myotendinous junction and adjacent to the insertion ; intact f ibers are demonstrated. TRICEPS TENDON: Intact. ULNAR NERVE: Well-visualized without edema or encroachment. ADJACENT SOFT TISSUES: Fluid signal extends distally along the supinator musculature. OTHER: No other significant finding. IMPRESSION: Examination limited by patient motion artifact degrading several acquisitions. 1. Biceps tendon strain without focal tear/ disruption. 2. Intermediate grade injury of the common extensor tendons manifest as subcortical marrow edema and proximal tendon heterogeneity without focal tear. The lateral collateral ligament is not well demon strated and may be injury. 3. Compaction fracture of the trochlea. 4. Tendinotic changes of the common flexor tendon. TECHNICAL DOCUMENTATION: JOB ID: [id number] 2010 [employer]- All Rights Reserved Reading location - IP/workstation name: [email or web address]
== END ==
LOC: RAD 09:54
PROVIDERS: ATTEND Physician Assistant
DX: M66.832 Spontaneous rupture of other tendons, left forearm (principal)

== ENCOUNTER 2020-04-26 21:05 | Emergency (ER) | payer BC ==
[2020-04-26 21:20] VITALS: BP 194/101
--- NOTE | 2020-04-26 23:07 | ER Document Report ---
HPI - HPI Time Seen by Provider: 04/26/20 21:56 Pain Level: Denies Context: Patient is a 39-year-old male who presents emergency department with a chief complaint of his cast being too tight. Patient saw his orthopedic doctor today and a hard cast was placed. Patient states that he feels that the proximal part of his forearm is too tight. States that he has some numbness, but is able to move his fingers. - ROS Systems Reviewed and Negative: Yes All other systems reviewed and negative - MUSCULOSKELETAL Musculoskeletal: REPORTS: Extremity pain - left arm - DERM Skin Color: Normal Skin Problems: None Past Medical History - Social History Smoking Status: Current Every Day Smoker Family History: Reviewed & Not Pertinent - Past Medical History Cardiac Medical History: Reports: Hx Hypercholesterolemia, Hx Hypertension Renal/ Medical History: Denies: Hx Peritoneal Dialysis - Immunizations Hx Diphtheria, Pertussis, Tetanus Vaccination: Yes - 2013 Vertical Provider Document - CONSTITUTIONAL Agree With Documented VS: Yes Exam Limitations: No Limitations General Appearance: No Apparent Distress - INFECTION CONTROL TRAVEL OUTSIDE OF THE [place] IN LAST 30 DAYS: No - HEENT HEENT: Atraumatic, Normocephalic, PERRLA - RESPIRATORY Respiratory: No Respiratory Distress - CARDIOVASCULAR Cardiovascular: Regular Rate, Regular Rhythm Pulses: Normal: Radial - MUSCULOSKELETAL/EXTREMETIES Musculoskeletal/Extremeties: FROM - NEURO Level of Consciousness: Awake, Alert, Appropriate Motor/Sensory: No Motor Deficit, No Sensory Deficit - DERM Integumentary: Warm, Dry, No Rash Course - Vital Signs Vital signs: Temp Pulse Resp BP Pulse Ox 98.6 F 99 17 194/101 H 99 04/26/20 21:18 04/26/20 21:18 04/26/20 21:18 04/26/20 21:18 04/26/20 21:18 Discharge - Discharge Clinical Impression: Tight cast Condition: Stable Disposition: HOME, SELF-CARE Additional Instructions: You were seen today in the emergency department for your cast being too tight. The cast was taken off and a splint was placed. Please keep the splint on. Follow-up with your orthopedic doctor regards to this visit.
== END 2020-04-26 23:15 | disposition home or self-care (01) ==
LOC: ER 21:05
DX: Z47.89 Encounter for other orthopedic aftercare (principal); R20.0 Anesthesia of skin; M79.602 Pain in left arm; F17.200 Nicotine dependence, unspecified, uncomplicated; I10 Essential (primary) hypertension
CPT/HCPCS: 99282